=== PATIENT | male | born 1950 | race Caucasian/White ===

== ENCOUNTER 2022-10-19 16:59 | Inpatient (IN) ==
[2022-10-19 18:04] LABS: Appearance Urine Clear (Clear); Bacteria Urine Automated 4+ (Negative); Bilirubin Urine Negative (Negative); Blood Urine Negative (Negative); Color Urine Dark Yellow; Epithelial Cell Urine Auto 0-5 /lpf (0-5); Glucose Urine UA Negative (Negative); Ketones Urine 2+ (Negative); Leukocyte Esterase Urine 2+ (Negative); Nitrite Urine Positive (Negative); Protein Urine 1+ (Negative); RBC Urine Automated 0-4 /hpf (0-4); Specific Gravity Urine 1.016 (1.000-1.030); Urobilinogen Urine Negative (Negative); WBC Urine Automated >30 /hpf (0-5)
[2022-10-19 18:06] LABS: Hematocrit (blood only) 47.1 % (42.0-52.0); Hemoglobin 16.7 g/dl (14.0-18.0); Mean Corpuscular Hemoglobin 31.2 pg (25.0-34.0); Mean Corpuscular Hgb Conc 35.5 g/dL (32.0-36.0); Mean Corpuscular Volume 87.9 fL (80.0-100.0); Mean Platelet Volume 11.1 fL (9.4-12.4); Platelet Count 160 K/uL (130-400); RDW Standard Deviation 44.8 fL (36.4-46.3); Red Blood Count 5.36 M/uL (4.70-6.10); White Blood Count 6.14 K/ul (4.8-10.8)
[2022-10-19] MEDS ORDERED: cefTRIAXone SODIUM 2,000 MG/70 ML BAG IV STA (18:25)
[2022-10-19 18:26] LABS: Albumin Globulin Ratio 2.2 (0.9-2); Albumin Level 4.7 gm/dl (3.4-5.0); BUN Creatinine Ratio 17.3 (10-20); Bilirubin,Total 2.7 mg/dl (0.2-1.0); Creatinine Clr Calc Pharmacy 64.8 ml/min; Est GFR (African American) 76.2 ml/min; Est GFR (Non-African American) 65.8 ml/min; Globulin 2.1 gm/dl (2.5-4.0); Potassium 3.2 mmol/L (3.5-5.1); Total Protein 6.8 gm/dl (6.0-8.3)
[2022-10-19 18:27] LABS: Basophils # (auto) 0.01 K/uL (0.00-0.20); Basophils % (auto) 0.2 %; Immature Granulocytes # (auto) 0.01 K/uL (0.01-0.20); Immature Granulocytes % (auto) 0.2 %; Lymphocytes # (auto) 0.16 K/uL (1.20-3.40); Lymphocytes % (auto) 2.6 %; Monocytes # (auto) 0.03 K/uL (0.11-0.59); Monocytes % (auto) 0.5 %; Neutrophils # (auto) 5.93 K/uL (1.40-6.50); Neutrophils % (auto) 96.5 %
[2022-10-19 18:29] LABS: Troponin I High Sensitivity 11.9 pg/ml (0-20)
--- NOTE | 2022-10-19 18:38 | Emergency Department Note ---
Impression & Plan Sepsis, Abdominal pain, acute, epigastric, Elevated LFTs, Acute UTI (urinary tract infection), Acalculous cholecystitis ED Provider Note INFORMANT: Patient ED PROVIDER(S): Shadi Horowitz MD CHIEF COMPLAINT: Abdominal pain PLAN: Disposition: Admitted Condition: Good Outpatient prescription management: none Referral: None MEDICAL DECISION MAKING: Patient presented because of abdominal pain a work-up was initiated. Her CBC was unremarkable. Patient's LFTs were very concerning as they were elevated in an obstructive pattern. Patient underwent ultrasound imaging and there was concerns about a calculus cholecystitis. Patient's urinalysis was concerning for infection. Patient was given a dose of IV Rocephin. After the ultrasound report was reviewed patient was given a dose of IV Flagyl and blood cultures performed. He did drop his blood pressure slightly. Patient had a lactate added and it was noted to be significantly elevated. Patient was treated with IV fluids given his ideal body weight. Patient did receive 2200 mL of fluid and his hypotension did resolve. Patient was given a small dose of Toradol as he did spike a fever. I did discuss his findings with gastroenterology, Dr. Mir. He recommended MRCP and further evaluation in the hospital. Consultation was made with Dr. Daniel Robledo of the [facility] service. Patient was evaluated in the ER for further management. Discussed with manager front After review of the information above and other included data, I feel the patient requires admission. Triage Nursing notes reviewed and agree them. Vital Signs: reviewed and remarkable for hypotension Prior /Outside records reviewed: none Differential diagnosis: Etiologies such as biliary pathology, gastroenteritis, food borne illness, infections, appendicitis, diverticulitis, inflammatory bowel disease, GI bleed, as well as others were entertained. Diagnostics, as interpreted by me: ECG: Twelve-lead ECG was sinus tachycardia [address]pm[address] minimal anterior [address] depression and nonspecific ST abnormality. No ST elevation. Cardiac Monitoring: Cardiac monitoring ordered by me: The patient was placed on continuous cardiac monitoring and observed. It revealed a normal sinus rhythm at 83 beats per minute without ectopy or evidence of dysrhythmia. Medical decision rules: none Imaging studies: Ultrasound as above. HPI: The patient is a 72year old male who presents to the Emergency Room with complaints of epigastric abdominal pain. This started early this morning and is actually improved. The patient also notes the following associated symptoms, chills and some urinary frequency. The patient has taken Tylenol for relieving factors. Current pain is rated as 0/10. Pt denies LOC, headache, diaphoresis, visual changes, neck pain, chest pain, breathing difficulties, nausea, vomiting, back pain, melena, hematochezia, numbness, weakness, lymphadenopathy, rash, or other complaints. PAST MEDICAL HISTORY: See Below, atrial tachycardia PAST SURGICAL HISTORY: See Below, hip replacements SOCIAL HISTORY: See Below, retired HOME MEDICATIONS: See Below ALLERGIES: See Below VITALS: See Below PHYSICAL EXAMINATION: GENERAL: Awake, alert, well-appearing, in no distress HENT: Normocephalic, atraumatic. Oropharynx unremarkable. EYES: Normal conjunctiva. Sclera non-icteric. NECK: Inspection normal. Non-tender. Supple. No nuchal rigidity. FROM. No masses. RESPIRATORY: Clear to auscultation. No wheezes. No rales. Normal respiratory effort. CARDIAC: Borderline tachycardic rate. Normal rhythm. No murmurs. No rubs. Extremities warm and well perfused. Pulses equal. No JVD. GI: Soft, non-distended. Epigastric tenderness to palpation. No rebound or guarding. No masses. RECTAL: Deferred. MUSCULOSKELETAL: Atraumatic. Chest examination reveals no tenderness. The back is symmetrical on inspection without obvious abnormality. There is no CVA tenderness to palpation. No joint edema. LOWER EXTREMITIES: Calves are equal size bilaterally and non-tender. No edema. No discoloration. NEURO: Normal sensorium. No sensory or motor deficits noted. SKIN: No rash or jaundice noted. CRITICAL CARE: I have personally spent 35 minutes of critical care time in the direct management of this patient. This includes bedside care, interpretation of diagnostic studies, and testing, discussion with consultants, patient, and other required patient management activities. These minutes are in excess of all separately billable procedures. Past Med/Surg History Medical History (Reviewed 09/24/22 @ 10:06 by Kavon Bravo Jr, MD, [facility]) GERD (gastroesophageal reflux disease) History of nephrolithiasis HLD (hyperlipidemia) HTN (hypertension) Osteoarthritis Surgical History (Reviewed 09/24/22 @ 10:06 by Kavon Bravo Jr, MD, [facility]) History of bilateral hip replacements History of cardiac catheterization History of cataract surgery History of colonoscopy History of eye surgery History of lithotripsy History of prostate surgery History of tonsillectomy Family History (Reviewed 09/24/22 @ 10:06 by Kavon Bravo Jr, MD, [facility]) Mother Myocardial infarction Father Stroke Other No family history of adverse response to anesthesia Denies family history of Ovarian cancer Prostate cancer Diabetes Breast cancer Lung cancer Colorectal cancer Social History (Reviewed 09/24/22 @ 10:06 by Kavon Bravo Jr, MD, [facility]) Smoking Status: Never smoker Second Hand Exposure: No; Do You Dip or Chew Tobacco: No; Hx Alcohol Use: No Hx Substance Use: No Preferred Language: Yi Communication Ability: Effective Visual Impairment: Limited Hearing Ability: Normal Map Plotter Required: No Beliefs That Will Affect Care: None marital status: Current Living Situation: Significant Other current occupational status: retired How many Children do You have: 0 Other Information That Helps Us Care for You: No Feels Safe at Home: Yes Safety Concerns: Feels Safe At This Time Childhood Exposure to Second-Hand Smoke: No caffeine: No Dental Care, Regularly: Yes Physical Activity Frequency: Does not Exercise Seatbelt Use: always Sunscreen Use: Yes Assistive Devices: Glasses Allergies Allergies Allergy/AdvReac Type Severity Reaction Status Date / Time No Known Allergies Allergy Verified 10/19/22 18:44 Home Meds Home Medications Medication Instructions Recorded Confirmed alpha lipoic acid 600 mg capsule 600 mg PO QAM 03/01/22 10/19/22 ascorbic acid (vitamin C) 1,000 mg 1 g PO QAM 03/01/22 10/19/22 capsule aspirin 81 mg tablet,delayed 81 mg PO QAM 03/01/22 10/19/22 release (Adult Low Dose Aspirin) cetirizine 10 mg capsule (Zyrtec) 10 mg PO DAILY PRN Allergy Symptoms 03/01/22 10/19/22 cholecalciferol (vitamin D3) 125 125 mcg PO QAM 03/01/22 10/19/22 mcg (5,000 unit) capsule coenzyme Q10 200 mg capsule 200 mg PO QAM 03/01/22 10/19/22 fluticasone propionate 50 2 spray intranasal QPM 03/01/22 10/19/22 mcg/actuation nasal spray,suspension (Flonase Allergy Relief) krill 350 mg-omega-3 90 mg-dha 24 1 cap PO QAM 03/01/22 10/19/22 mg-epa 50 jh-lwdbkax-bxtzp capsule (MegaRed [place]-3 Krill Oil) mecobalamin (vitamin B12) 1,000 1,000 mcg PO QAM 03/01/22 10/19/22 mcg chewable tablet beevhzbh-wz-rlmbg 300 mcg-K 60 1 tab PO QAM 03/01/22 10/19/22 mcg-lycop 600 mcg-lutein 300 mcg tablet (Centrum Silver Men) red yeast rice 600 mg capsule 1,200 mg PO QAM 03/01/22 10/19/22 atorvastatin 80 mg tablet 80 mg PO QAM 06/11/22 10/19/22 esomeprazole magnesium 20 mg 20 mg PO QAM 06/11/22 10/19/22 capsule,delayed release (Nexium) hydrochlorothiazide 25 mg tablet 25 mg PO QAM 06/11/22 10/19/22 metoprolol succinate 50 mg capsule 50 mg PO QAM 06/11/22 10/19/22 sprinkle, ext. release 24 hr olmesartan 40 mg tablet 40 mg PO QAM 06/11/22 10/19/22 potassium gluconate 600 mg (99 mg) 600 mg PO DAILY 09/05/22 10/19/22 tablet vitamins A,C,Z-zkey-bxffpm 2,148 1 tab PO BID 09/05/22 10/19/22 mcg-113 mg-45 mg-17.4 mg tablet (PreserVision AREDS) cranberry extract 500 mg tablet 1,000 mg PO DAILY 10/19/22 10/19/22 herbal drugs 2 cap PO DAILY 10/19/22 10/19/22 Previous Rx's Medication Instructions Recorded nitroglycerin 0.4 mg sublingual 0.4 mg sublingual Q5M PRN chest 08/14/22 tablet pain #12 tabs diltiazem HCl 240 mg 240 mg PO DAILY #90 caps 09/24/22 capsule,extended release 24 hr famotidine 20 mg tablet 20 mg PO DAILY #90 tabs 10/04/22 Results & Data (ED) Vital Signs Vital Signs - 24 hr 10/19/22 17:13 10/19/22 18:01 10/19/22 18:01 Temperature 37.0 C Temperature Source Temporal Artery Scan Pulse Rate 106 H 109 H Pulse Rate [Apical] 109 H Respiratory Rate 20 18 18 Respiratory Effort / Characteristics Non-Labored Non-Labored Spontaneous Respiratory Depth Normal Normal Blood Pressure 126/76 Blood Pressure [Right Arm] 146/72 H Blood Pressure Mean 92 Blood Pressure Mean [Right Arm] 96 Pulse Oximetry 94 93 93 Oxygen Delivery Method Room Air Room Air Room Air Sepsis Recent Fever Within 48 Hours No Sepsis New/Unexplained Change in Mental Status N/A Sepsis Action Taken by Nursing No Action Required 10/19/22 18:04 10/19/22 19:28 10/19/22 20:54 Temperature Temperature Source Pulse Rate 108 H Pulse Rate [Apical] 93 H 80 Respiratory Rate 20 18 Respiratory Effort / Characteristics Respiratory Depth Blood Pressure Blood Pressure [Right Arm] 89/73 L 109/70 Blood Pressure Mean Blood Pressure Mean [Right Arm] 78 83 Pulse Oximetry 91 93 Oxygen Delivery Method Room Air Room Air Sepsis Recent Fever Within 48 Hours Sepsis New/Unexplained Change in Mental Status Sepsis Action Taken by Nursing Laboratory Data 10/19/22 17:39 10/19/22 17:39 Lab Results 10/19/22 10/19/22 10/19/22 Range/Units 17:39 17:39 17:39 WBC 6.14 (4.8-10.8) K/ul RBC 5.36 (4.70-6.10) M/uL Hgb 16.7 (14.0-18.0) g/dl Hct 47.1 (42.0-52.0) % MCV 87.9 (80.0-100.0) fL MCH 31.2 (25.0-34.0) pg MCHC 35.5 (32.0-36.0) g/dL RDW Std Deviation 44.8 (36.4-46.3) fL RDW Coeff of Thomas 14.0 (11.5-14.5) % Plt Count 160 (130-400) K/uL MPV 11.1 (9.4-12.4) fL Immature Gran % (Auto) 0.2 % Neut % (Auto) 96.5 % Lymph % (Auto) 2.6 % [place] % (Auto) 0.5 % Eos % (Auto) 0.0 % Baso % (Auto) 0.2 % Neut # (Auto) 5.93 (1.40-6.50) K/uL Lymph # (Auto) 0.16 L (1.20-3.40) K/uL [place] # (Auto) 0.03 L (0.11-0.59) K/uL Eos # (Auto) 0.00 (0.00-0.50) K/uL Baso # (Auto) 0.01 (0.00-0.20) K/uL Immature Gran # (Auto) 0.01 (0.01-0.20) K/uL Sodium 140 (136-145) mmol/L Potassium 3.2 L (3.5-5.1) mmol/L Chloride 99 (98-107) mmol/L Carbon Dioxide 28 (21-32) mmol/L Anion Gap 13 H (3-11) BUN 19 (6-23) mg/dl Creatinine 1.10 (0.6-1.4) mg/dl Est Cr Clr Drug Dosing 64.8 ml/min Est GFR ( Amer) 76.2 ml/min Est GFR (Non-Af Amer) 65.8 ml/min BUN/Creatinine Ratio 17.3 (10-20) Glucose 108 H (70-99(Fasting)) mg/dl Lactate (0.4-2.0) mmol/L Calcium 10.0 (8.6-10.3) mg/dl Total Bilirubin 2.7 H (0.2-1.0) mg/dl AST 271 H (13-39) U/L ALT 204 H (7-52) U/L Alkaline Phosphatase 213 H (34-104) U/L Troponin I High Sens 11.9 (0-20) pg/ml Total Protein 6.8 (6.0-8.3) gm/dl Albumin 4.7 (3.4-5.0) gm/dl Globulin 2.1 L (2.5-4.0) gm/dl Albumin/Globulin Ratio 2.2 H (0.9-2) Lipase 22 (11-82) U/L Urine Color Dark Yellow Urine Appearance Clear (Clear) Urine pH 5.0 (4.5-7.5) Ur Specific [place] 1.016 (1.000-1.030) Urine Protein 1+ H (Negative) Urine Glucose (UA) Negative (Negative) Urine Ketones 2+ H (Negative) Urine Blood Negative (Negative) Urine Nitrite Positive A (Negative) Urine Bilirubin Negative (Negative) Urine Urobilinogen Negative (Negative) Ur Leukocyte Esterase 2+ H (Negative) Urine WBC (Auto) >30 H (0-5) /hpf Urine RBC (Auto) 0-4 (0-4) /hpf U Hyaline Cast (Auto) 1-5 (0-5) /lpf U Epithel Cells (Auto) 0-5 (0-5) /lpf Urine Bacteria (Auto) 4+ H (Negative) 10/19/22 Range/Units 20:19 WBC (4.8-10.8) K/ul RBC (4.70-6.10) M/uL Hgb (14.0-18.0) g/dl Hct (42.0-52.0) % MCV (80.0-100.0) fL MCH (25.0-34.0) pg MCHC (32.0-36.0) g/dL RDW Std Deviation (36.4-46.3) fL RDW Coeff of Thomas (11.5-14.5) % Plt Count (130-400) K/uL MPV (9.4-12.4) fL Immature Gran % (Auto) % Neut % (Auto) % Lymph % (Auto) % [place] % (Auto) % Eos % (Auto) % Baso % (Auto) % Neut # (Auto) (1.40-6.50) K/uL Lymph # (Auto) (1.20-3.40) K/uL [place] # (Auto) (0.11-0.59) K/uL Eos # (Auto) (0.00-0.50) K/uL Baso # (Auto) (0.00-0.20) K/uL Immature Gran # (Auto) (0.01-0.20) K/uL Sodium (136-145) mmol/L Potassium (3.5-5.1) mmol/L Chloride (98-107) mmol/L Carbon Dioxide (21-32) mmol/L Anion Gap (3-11) BUN (6-23) mg/dl Creatinine (0.6-1.4) mg/dl Est Cr Clr Drug Dosing ml/min Est GFR ( Amer) ml/min Est GFR (Non-Af Amer) ml/min BUN/Creatinine Ratio (10-20) Glucose (70-99(Fasting)) mg/dl Lactate 3.8 H* (0.4-2.0) mmol/L Calcium (8.6-10.3) mg/dl Total Bilirubin (0.2-1.0) mg/dl AST (13-39) U/L ALT (7-52) U/L Alkaline Phosphatase (34-104) U/L Troponin I High Sens (0-20) pg/ml Total Protein (6.0-8.3) gm/dl Albumin (3.4-5.0) gm/dl Globulin (2.5-4.0) gm/dl Albumin/Globulin Ratio (0.9-2) Lipase (11-82) U/L Urine Color Urine Appearance (Clear) Urine pH (4.5-7.5) Ur Specific [place] (1.000-1.030) Urine Protein (Negative) Urine Glucose (UA) (Negative) Urine Ketones (Negative) Urine Blood (Negative) Urine Nitrite (Negative) Urine Bilirubin (Negative) Urine Urobilinogen (Negative) Ur Leukocyte Esterase (Negative) Urine WBC (Auto) (0-5) /hpf Urine RBC (Auto) (0-4) /hpf U Hyaline Cast (Auto) (0-5) /lpf U Epithel Cells (Auto) (0-5) /lpf Urine Bacteria (Auto) (Negative) Administered Medications Discontinued Medications Ceftriaxone Sodium (Rocephin) 2,000 mg in 70 mls @ 140 mls/hr IV NOW STA Stop: 10/19/22 18:54 Last Infusion: 10/19/22 19:56 Dose: 0 mls/hr Documented By: Admin: 10/19/22 19:26 Dose: 140 mls/hr Documented By: JAROCHO Sodium Chloride (Nss 1000ml) 2,000 mls @ 999 mls/hr IV .Q2H1M ONE Stop: 10/19/22 21:50 Last Infusion: 10/19/22 22:58 Dose: 0 mls/hr Documented By: Admin: 10/19/22 20:12 Dose: 999 mls/hr Documented By: JAROCHO Metronidazole (Flagyl) 500 mg in 100 mls @ 100 mls/hr IV NOW STA; Protocol Stop: 10/19/22 20:49 Last Infusion: 10/19/22 21:40 Dose: 0 mls/hr Documented By: Admin: 10/19/22 20:36 Dose: 100 mls/hr Documented By: JAROCHO Potassium Chloride (K Joshua / Wtr) 10 meq in 100 mls @ 100 mls/hr IV ONE ONE; Protocol Stop: 10/19/22 21:39 Last Infusion: 10/19/22 22:58 Dose: 0 mls/hr Documented By: Admin: 10/19/22 20:52 Dose: 100 mls/hr Documented By: JAROCHO Ketorolac Tromethamine (Ketorolac Tromethamine 15 Mg/Ml Vial) 10 mg IV NOW ONE Stop: 10/19/22 19:55 Last Admin: 10/19/22 20:11 Dose: 10 mg Documented By: JAROCHO Imaging Data Radiologist's Impression: Gallbladder Ultrasound 10/19/22 17:54 ULTRASOUND RIGHT UPPER QUADRANT ABDOMEN CLINICAL HISTORY: Epigastric abdominal pain. Chills. Anorexia. COMPARISON STUDY: No priors. TECHNIQUE: Real-time, grayscale, and color flow sonography of the right upper quadrant of the abdomen was performed. Images are reviewed in the transverse and longitudinal planes. FINDINGS: Liver: The liver is normal in size and echotexture. There is no intrahepatic biliary ductal dilatation. The main portal vein is patent. Gallbladder: The gallbladder is distended and the wall is thickened, measuring up to 3 mm in diameter. No shadowing gallstones are identified. No pericholecystic fluid is seen and a sonographic Verduzco's sign is reportedly absent. The common bile duct measures up to 0.6 cm in diameter. Pancreas: Visualized portions of the pancreatic head and body are normal in appearance. Right kidney: Survey images of the right kidney demonstrate normal size and echotexture. There is no hydronephrosis. Ascites: None. IMPRESSION: 1. The gallbladder is distended and appears thick-walled. No shadowing gallstones are identified and a sonographic Verduzco's sign is reportedly absent. Findings are equivocal for acute cholecystitis, which is not entirely excluded. Clinical and laboratory correlation will be required. If there is strong clinical concern for acute/acalculus cholecystitis a nuclear hepatobiliary scan should be considered. 2. There is no significant intra or extrahepatic biliary ductal dilatation. ACT 112: Negative or not required by law. Electronically signed by: Shravan Brown M.D. 10/19/2022 7:39 PM Cholangiopancreatography MRI 10/19/22 20:52 Exam(s): MRI MRCP EXAM: MR Abdomen Without Intravenous Contrast, MRCP Protocol CLINICAL HISTORY: abnormal LFT's. TECHNIQUE: Multiplanar magnetic resonance images of the abdomen without intravenous contrast using MRCP protocol. COMPARISON: Right upper quadrant ultrasound performed at 1856 hrs. FINDINGS: Bile ducts: Unremarkable. No stones. No ductal dilation. Gallbladder: The gallbladder is distended. No cholelithiasis. The gallbladder wall thickening noted sonographically is not clearly delineated, although evaluation is slightly limited by mild respiratory artifact. No obvious pericholecystic fluid. Liver: Low attenuation foci in the liver which may be due to cysts but are too small to characterize. Pancreas: Unremarkable. No ductal dilation. Spleen: Unremarkable. No splenomegaly. Adrenals: Unremarkable. No mass. Kidneys and ureters: Unremarkable. No hydronephrosis. Stomach and bowel: Limited. No obstruction. Other findings: Asymmetric elevation of the right hemidiaphragm. IMPRESSION: 1. The gallbladder is distended. No cholelithiasis. The gallbladder wall thickening noted sonographically is not clearly delineated, although evaluation is slightly limited by mild respiratory artifact. No obvious pericholecystic fluid. 2. No biliary dilatation. No choledocholithiasis. Electronically signed by: Ravi Enamorado MD 10/19/22 23:30 PM Discharge Plan Visit Data Chief Complaint: Abdominal Pain Stated Complaint: ABD PAIN, SHAKY ED Provider: Shadi Horowitz Discharge Problem: Sepsis, Abdominal pain, acute, epigastric, Elevated LFTs, Acute UTI (urinary tract infection), Acalculous cholecystitis Patient Disposition: Admitted As Inpatient Discharge Instructions Interventions: ED Discharge Assessment Last Done: 10/19/22 22:24
--- NOTE | 2022-10-19 19:41 | Ultrasound Report ---
ULTRASOUND RIGHT UPPER QUADRANT ABDOMEN CLINICAL HISTORY: Epigastric abdominal pain. Chills. Anorexia. COMPARISON STUDY: No priors. TECHNIQUE: Real-time, grayscale, and color flow sonography of the right upper quadrant of the abdomen was performed. Images are reviewed in the transverse and longitudinal planes. FINDINGS: Liver: The liver is normal in size and echotexture. There is no intrahepatic biliary ductal dilatatio n. The main portal vein is patent. Gallbladder: The gallbladder is distended and the wall is thickened, measuring up to 3 mm in diameter . No shadowing gallstones are identified. No pericholecystic fluid is seen and a sonographic Verduzco's sign is reportedly absent. The common bile duct measures up to 0.6 cm in diameter. Pancreas: Visualized portions of the pancreatic head and body are normal in appearance. Right kidney: Survey images of the right kidney demonstrate normal size and echotexture. There is no hydronephrosis. Ascites: None. IMPRESSION: 1. The gallbladder is distended and appears thick-walled. No shadowing gallstones are identified and a sonographic Verduzco's sign is reportedly absent. Findings are equivocal for acute cholecystitis, whi ch is not entirely excluded. Clinical and laboratory correlation will be required. If there is strong clinical concern for acute/acalculus cholecystitis a nuclear hepatobiliary scan should be considered . 2. There is no significant intra or extrahepatic biliary ductal dilatation. ACT 112: Negative or not required by law. Electronically signed by: Shravan Brown M.D. 10/19/2022 7:39 PM
[2022-10-19] MEDS ORDERED: SODIUM CHLORIDE 0.9% 2,000 ML IV ONE (19:50)
[2022-10-19] MEDS ORDERED: metroNIDAZOLE 500 MG/100 ML BAG IV STA (19:50)
[2022-10-19] MEDS ORDERED: KETOROLAC TROMETHAMINE 15 MG/ML VIAL IV ONE (19:54)
[2022-10-19] MEDS ORDERED: POTASSIUM CHLORIDE / WTR 10 MEQ/100 ML PLCT IV ONE (20:40)
--- NOTE | 2022-10-19 21:00 | History & Physical Report ---
Date of Service October 19, 2022 Assessment & Plan (1) Abdominal pain, acute, epigastric: (2) Elevated LFTs: (3) Abnormal gallbladder ultrasound: (4) Acute UTI (urinary tract infection): (5) Nonsustained paroxysmal supraventricular tachycardia: (6) BPH loc w urin obs/LUTS: (7) CAD (coronary artery disease): (8) GERD (gastroesophageal reflux disease): Plan Abnormal gallbladder ultrasound/epigastric pain/abnormal LFTs- NPO except meds Order MRCP Given ceftriaxone and Flagyl IV in ED Zosyn 4.5 g IV hours Dilaudid 0.25 mg IV 6 hours as needed for mod-severe pain Pantoprazole 40 mg IV daily NSS + KCl 20 mEq at 100 mils per hour Consult gastroenterology UTI/BPH with LUTS- Follow urine culture and sensitivity Zosyn 4.5g IV qhrs Hypotension/history of hypertension- Blood pressure dropped as low as 89/73 in the ED admit to telemetry Hold All oral anti-hypertensives until blood pressure improves Continue IV fluids History of Present Illness Chief Complaint: The patient presents to the emergency department with complaint of epigastric abdominal pain that began first thing this morning upon awakening, improved slightly, and then worsened at 2:30 PM this afternoon accompanied by nausea, which prompted him to come to the ED for assessment Primary Care Provider: CONRADO Mulligan The patient is a 72-year-old male with past medical history including nonsustained V. tach, paroxysmal atrial tachycardia, hypertension, BPH with LUTS, CAD, hyperlipidemia, GERD, prediabetes and urolithiasis. He presents the ED with a cute onset of epigastric pain which progressed to nausea and worsening pain up until 230 this afternoon, when he presents to the ED for assessment. He has not had any different food intake than usual, and no symptoms prior to today. He denies any recent travels or sick exposures. Significant laboratory abnormalities: Hemoglobin 16.7, hematocrit 47.1, potassium 3.2, glucose 108, total bilirubin 2.7, AST 271, ALT 204, ALP 213. Urinalysis is abnormal suggesting infection Ultrasound gallbladder: Gallbladder is distended and appears thick-walled. No shadowing gallstones identified and a sonographic Verduzco sign is reportedly absent. Findings are equivocal for acute cholecystitis, which is not entirely excluded. Clinical and laboratory correlation will be required. If there is a strong clinical discern for acute/a calculus cholecystitis a nuclear hepatobiliary scan should be considered GI consult by ED, asked that MRCP be performed. Allergies Allergy/AdvReac Type Severity Reaction Status Date / Time No Known Allergies Allergy Verified 10/19/22 18:44 Home Medications Medication Instructions Recorded Confirmed Type alpha lipoic acid 600 mg capsule 600 mg PO QAM 03/01/22 10/19/22 History ascorbic acid (vitamin C) 1,000 mg 1 g PO QAM 03/01/22 10/19/22 History capsule aspirin 81 mg tablet,delayed 81 mg PO QAM 03/01/22 10/19/22 History release (Adult Low Dose Aspirin) cetirizine 10 mg capsule (Zyrtec) 10 mg PO DAILY PRN Allergy Symptoms 03/01/22 10/19/22 History cholecalciferol (vitamin D3) 125 125 mcg PO QAM 03/01/22 10/19/22 History mcg (5,000 unit) capsule coenzyme Q10 200 mg capsule 200 mg PO QAM 03/01/22 10/19/22 History fluticasone propionate 50 2 spray intranasal QPM 03/01/22 10/19/22 History mcg/actuation nasal spray,suspension (Flonase Allergy Relief) krill 350 mg-omega-3 90 mg-dha 24 1 cap PO QAM 03/01/22 10/19/22 History mg-epa 50 mc-hhkihnp-jefzd capsule (MegaRed Lovejoy-3 Krill Oil) mecobalamin (vitamin B12) 1,000 1,000 mcg PO QAM 03/01/22 10/19/22 History mcg chewable tablet epwwxtfw-ks-rmxqd 300 mcg-K 60 1 tab PO QAM 03/01/22 10/19/22 History mcg-lycop 600 mcg-lutein 300 mcg tablet (Centrum Silver Men) red yeast rice 600 mg capsule 1,200 mg PO QAM 03/01/22 10/19/22 History atorvastatin 80 mg tablet 80 mg PO QAM 06/11/22 10/19/22 History esomeprazole magnesium 20 mg 20 mg PO QAM 06/11/22 10/19/22 History capsule,delayed release (Nexium) hydrochlorothiazide 25 mg tablet 25 mg PO QAM 06/11/22 10/19/22 History metoprolol succinate 50 mg capsule 50 mg PO QAM 06/11/22 10/19/22 History sprinkle, ext. release 24 hr olmesartan 40 mg tablet 40 mg PO QAM 06/11/22 10/19/22 History nitroglycerin 0.4 mg sublingual 0.4 mg sublingual Q5M PRN chest 08/14/22 10/19/22 Rx tablet pain #12 tabs potassium gluconate 600 mg (99 mg) 600 mg PO DAILY 09/05/22 10/19/22 History tablet vitamins A,C,I-rqff-yhaaxf 2,148 1 tab PO BID 09/05/22 10/19/22 History mcg-113 mg-45 mg-17.4 mg tablet (PreserVision AREDS) diltiazem HCl 240 mg 240 mg PO DAILY #90 caps 09/24/22 10/19/22 Rx capsule,extended release 24 hr famotidine 20 mg tablet 20 mg PO DAILY #90 tabs 10/04/22 10/19/22 Rx cranberry extract 500 mg tablet 1,000 mg PO DAILY 10/19/22 10/19/22 History herbal drugs 2 cap PO DAILY 10/19/22 10/19/22 History Past Med/Surg History Medical History GERD (gastroesophageal reflux disease) History of nephrolithiasis HLD (hyperlipidemia) HTN (hypertension) Osteoarthritis Surgical History History of bilateral hip replacements History of cardiac catheterization History of cataract surgery History of colonoscopy History of eye surgery History of lithotripsy History of prostate surgery History of tonsillectomy Family History (Reviewed 09/24/22 @ 10:06 by Kavon Bravo Jr, MD, [facility]) Mother Myocardial infarction Father Stroke Other No family history of adverse response to anesthesia Denies family history of Ovarian cancer Prostate cancer Diabetes Breast cancer Lung cancer Colorectal cancer Social History Smoking Status: Never smoker Second Hand Exposure: No; Do You Dip or Chew Tobacco: No; Hx Alcohol Use: No Hx Substance Use: No Preferred Language: Mongolian Communication Ability: Effective Visual Impairment: Limited Hearing Ability: Normal Cafe Site Attendant Required: No Beliefs That Will Affect Care: None marital status: Current Living Situation: Significant Other current occupational status: retired How many Children do You have: 0 Feels Safe at Home: Yes Childhood Exposure to Second-Hand Smoke: No caffeine: No Dental Care, Regularly: Yes Physical Activity Frequency: Does not Exercise Seatbelt Use: always Sunscreen Use: Yes Assistive Devices: Glasses Review of Systems Review of Systems: The patient denies chest pain, palpitations, shortness of breath, dyspnea on exertion, cough, lower extremity swelling, sore throat, fevers, chills, sweats, vomiting, diarrhea , constipation, pelvic pain, blood in urine or stool, dysuria, urinary frequency or urgency, lightheadedness, dizziness, headache, memory loss, loss of consciousness, rash, abnormal bruising or bleeding, imbalance, focal or generalized weakness, numbness or tingling in arms or legs, generalized arthralgias or myalgias, back or neck pain, or night sweats. The review of systems is otherwise negative other than for that already noted above, and at least 10 systems have been reviewed. Physical Exam Physical Exam: The patient is awake, alert and oriented 3, well developed and well nourished, normocephalic and atraumatic, sitting upright iin bed and in no acute distress. HEENT--PERRL, EOMI, mucous membranes and oropharynx dry. Neck--supple. No JVD. No bruits. Thyroid normal, trachea midline, no adenopathy. Heart--normal S1 and S2. No murmurs, rubs or gallops. Lungs--clear bilaterally, no respiratory distress, no accessory muscle use. Abdomen--normal bowel sounds and soft. Nontender. Nondistended, no hernias or masses, no organomegaly. Extremities--no cyanosis or clubbing. No edema. Dermatologic--normal skin turgor, normal color, no abnormal lymph nodes, no rash. Neurologic--cranial nerves II through XII grossly intact. Rheumatologic--normal range of motion. Psychiatric--normal affect. Results & Data Results & Data Vital Signs (Past 12 Hours) Vital Signs Temp Pulse Pulse Resp BP BP Pulse Ox 10/19/22 20:54 80 18 109/70 93 10/19/22 19:28 93 H 20 89/73 L 91 10/19/22 18:04 108 H 10/19/22 18:01 109 H 18 93 10/19/22 18:01 109 H 18 146/72 H 93 10/19/22 17:13 37.0 C 106 H 20 126/76 94 O2 Del Method 10/19/22 20:54 Room Air 10/19/22 19:28 Room Air 10/19/22 18:04 10/19/22 18:01 Room Air 10/19/22 18:01 Room Air 10/19/22 17:13 Room Air Laboratory Results Laboratory Results WBC 6.14 K/ul (4.8-10.8) 10/19/22 17:39 RBC 5.36 M/uL (4.70-6.10) 10/19/22 17:39 Hgb 16.7 g/dl (14.0-18.0) 10/19/22 17:39 Hct 47.1 % (42.0-52.0) 10/19/22 17:39 MCV 87.9 fL (80.0-100.0) 10/19/22 17:39 MCH 31.2 pg (25.0-34.0) 10/19/22 17:39 MCHC 35.5 g/dL (32.0-36.0) 10/19/22 17:39 RDW Std Deviation 44.8 fL (36.4-46.3) 10/19/22 17:39 RDW Coeff of Thomas 14.0 % (11.5-14.5) 10/19/22 17:39 Plt Count 160 K/uL (130-400) 10/19/22 17:39 MPV 11.1 fL (9.4-12.4) 10/19/22 17:39 Immature Gran % (Auto) 0.2 % 10/19/22 17:39 Neut % (Auto) 96.5 % 10/19/22 17:39 Lymph % (Auto) 2.6 % 10/19/22 17:39 [place] % (Auto) 0.5 % 10/19/22 17:39 Eos % (Auto) 0.0 % 10/19/22 17:39 Baso % (Auto) 0.2 % 10/19/22 17:39 Neut # (Auto) 5.93 K/uL (1.40-6.50) 10/19/22 17:39 Lymph # (Auto) 0.16 K/uL (1.20-3.40) L 10/19/22 17:39 [place] # (Auto) 0.03 K/uL (0.11-0.59) L 10/19/22 17:39 Eos # (Auto) 0.00 K/uL (0.00-0.50) 10/19/22 17:39 Baso # (Auto) 0.01 K/uL (0.00-0.20) 10/19/22 17:39 Immature Gran # (Auto) 0.01 K/uL (0.01-0.20) 10/19/22 17:39 Sodium 140 mmol/L (136-145) 10/19/22 17:39 Potassium 3.2 mmol/L (3.5-5.1) L 10/19/22 17:39 Chloride 99 mmol/L (98-107) 10/19/22 17:39 Carbon Dioxide 28 mmol/L (21-32) 10/19/22 17:39 Anion Gap 13 (3-11) H 10/19/22 17:39 BUN 19 mg/dl (6-23) 10/19/22 17:39 Creatinine 1.10 mg/dl (0.6-1.4) 10/19/22 17:39 Est Cr Clr Drug Dosing 64.8 ml/min 10/19/22 17:39 Est GFR ( Amer) 76.2 ml/min 10/19/22 17:39 Est GFR (Non-Af Amer) 65.8 ml/min 10/19/22 17:39 BUN/Creatinine Ratio 17.3 (10-20) 10/19/22 17:39 Glucose 108 mg/dl (70-99(Fasting)) H 10/19/22 17:39 Lactate 2.4 mmol/L (0.4-2.0) H* 10/19/22 22:34 Calcium 10.0 mg/dl (8.6-10.3) 10/19/22 17:39 Total Bilirubin 2.7 mg/dl (0.2-1.0) H 10/19/22 17:39 AST 271 U/L (13-39) H 10/19/22 17:39 ALT 204 U/L (7-52) H 10/19/22 17:39 Alkaline Phosphatase 213 U/L (34-104) H 10/19/22 17:39 Troponin I High Sens 11.9 pg/ml (0-20) 10/19/22 17:39 Total Protein 6.8 gm/dl (6.0-8.3) 10/19/22 17:39 Albumin 4.7 gm/dl (3.4-5.0) 10/19/22 17:39 Globulin 2.1 gm/dl (2.5-4.0) L 10/19/22 17:39 Albumin/Globulin Ratio 2.2 (0.9-2) H 10/19/22 17:39 Lipase 22 U/L (11-82) 10/19/22 17:39 Urine Color Dark Yellow 10/19/22 17:39 Urine Appearance Clear (Clear) 10/19/22 17:39 Urine pH 5.0 (4.5-7.5) 10/19/22 17:39 Ur Specific [place] 1.016 (1.000-1.030) 10/19/22 17:39 Urine Protein 1+ (Negative) H 10/19/22 17:39 Urine Glucose (UA) Negative (Negative) 10/19/22 17:39 Urine Ketones 2+ (Negative) H 10/19/22 17:39 Urine Blood Negative (Negative) 10/19/22 17:39 Urine Nitrite Positive (Negative) A 10/19/22 17:39 Urine Bilirubin Negative (Negative) 10/19/22 17:39 Urine Urobilinogen Negative (Negative) 10/19/22 17:39 Ur Leukocyte Esterase 2+ (Negative) H 10/19/22 17:39 Urine WBC (Auto) >30 /hpf (0-5) H 10/19/22 17:39 Urine RBC (Auto) 0-4 /hpf (0-4) 10/19/22 17:39 U Hyaline Cast (Auto) 1-5 /lpf (0-5) 10/19/22 17:39 U Epithel Cells (Auto) 0-5 /lpf (0-5) 10/19/22 17:39 Urine Bacteria (Auto) 4+ (Negative) H 10/19/22 17:39 Impressions Gallbladder Ultrasound 09/01/23 17:54 ULTRASOUND RIGHT UPPER QUADRANT ABDOMEN CLINICAL HISTORY: Epigastric abdominal pain. Chills. Anorexia. COMPARISON STUDY: No priors. TECHNIQUE: Real-time, grayscale, and color flow sonography of the right upper quadrant of the abdomen was performed. Images are reviewed in the transverse and longitudinal planes. FINDINGS: Liver: The liver is normal in size and echotexture. There is no intrahepatic biliary ductal dilatation. The main portal vein is patent. Gallbladder: The gallbladder is distended and the wall is thickened, measuring up to 3 mm in diameter. No shadowing gallstones are identified. No pericholecystic fluid is seen and a sonographic Verduzco's sign is reportedly absent. The common bile duct measures up to 0.6 cm in diameter. Pancreas: Visualized portions of the pancreatic head and body are normal in appearance. Right kidney: Survey images of the right kidney demonstrate normal size and echotexture. There is no hydronephrosis. Ascites: None. IMPRESSION: 1. The gallbladder is distended and appears thick-walled. No shadowing gallstones are identified and a sonographic Verduzco's sign is reportedly absent. Findings are equivocal for acute cholecystitis, which is not entirely excluded. Clinical and laboratory correlation will be required. If there is strong clinical concern for acute/acalculus cholecystitis a nuclear hepatobiliary scan should be considered. 2. There is no significant intra or extrahepatic biliary ductal dilatation. ACT 112: Negative or not required by law. Electronically signed by: Shravan Brown M.D. 10/19/2022 7:39 PM Code Status & VTE Plan Code Status Full code VTE Prophylaxis Plan VTE Prophylaxis will be ordered: Yes PG Care Time/CCT Total # of Minutes Spent Total Time Spent with Patient: Total time spent is greater than 50% in coordination of care (as documented) at patient's floor/unit and/or counseling patient: Coding Level of Care Code 91124 INT INP/OBS CARE 3/75MIN Diagnoses Abdominal pain, acute, epigastric R10.13 Elevated LFTs R79.89 Abnormal gallbladder ultrasound R93.2 Acute UTI (urinary tract infection) N39.0 Nonsustained paroxysmal supraventricular tachycardia I47.1 BPH loc w urin obs/LUTS N40.1 CAD (coronary artery disease) I25.10 GERD (gastroesophageal reflux disease) K21.9
[2022-10-19] MEDS ORDERED: ONDANSETRON INJ 2 MG/ML 2 ML VIAL IV PRN (22:51)
[2022-10-19] MEDS ORDERED: HYDROmorphone INJ 0.5 MG/0.5 ML SYR IV PRN (22:51)
--- NOTE | 2022-10-19 23:32 | Magnetic Resonance Report ---
Exam(s): MRI MRCP EXAM: MR Abdomen Without Intravenous Contrast, MRCP Protocol CLINICAL HISTORY: abnormal LFT's. TECHNIQUE: Multiplanar magnetic resonance images of the abdomen without intravenous contrast using MRCP protocol. COMPARISON: Right upper quadrant ultrasound performed at 1856 hrs. FINDINGS: Bile ducts: Unremarkable. No stones. No ductal dilation. Gallbladder: The gallbladder is distended. No cholelithiasis. The gallbladder wall thickening noted sonographically is not clearly delineated, although evaluation is slightly limited by mild respiratory artifact. No obvious pericholecystic fluid. Liver: Low attenuation foci in the liver which may be due to cysts but are too small to characterize. Pancreas: Unremarkable. No ductal dilation. Spleen: Unremarkable. No splenomegaly. Adrenals: Unremarkable. No mass. Kidneys and ureters: Unremarkable. No hydronephrosis. Stomach and bowel: Limited. No obstruction. Other findings: Asymmetric elevation of the right hemidiaphragm. IMPRESSION: 1. The gallbladder is distended. No cholelithiasis. The gallbladder wall thickening noted sonographically is not clearly delineated, although evaluation is slightly limited by mild respiratory artifact. No obvious pericholecystic fluid. 2. No biliary dilatation. No choledocholithiasis. Electronically signed by: Ravi Enamorado MD 10/19/22 23:30 PM
[2022-10-19] MEDS: NSS + 20MEQ KCL 20 MEQ/1,000 ML BAG IV SCH (23:53)
[2022-10-19] MEDS: PIPERACILLIN/TAZOBACTAM 4.5 GM in DEXTROSE 5% 100 ML IV SCH (23:53)
[2022-10-20] MEDS ORDERED: KETOROLAC TROMETHAMINE 15 MG/ML VIAL IV PRN (00:06)
[2022-10-20 06:58] LABS: Hemoglobin 13.8 g/dl (14.0-18.0); Mean Corpuscular Hemoglobin 30.9 pg (25.0-34.0); Mean Corpuscular Hgb Conc 34.5 g/dL (32.0-36.0); Mean Corpuscular Volume 89.7 fL (80.0-100.0); Mean Platelet Volume 11.9 fL (9.4-12.4); Platelet Count 139 K/uL (130-400); RDW Coefficient of Variation 14.4 % (11.5-14.5); RDW Standard Deviation 46.8 fL (36.4-46.3); Red Blood Count 4.46 M/uL (4.70-6.10); White Blood Count 15.73 K/ul (4.8-10.8)
[2022-10-20 07:02] LABS: Basophils # (auto) 0.05 K/uL (0.00-0.20); Basophils % (auto) 0.3 %; Eosinophils # (auto) 0.03 K/uL (0.00-0.50); Eosinophils % (auto) 0.2 %; Immature Granulocytes # (auto) 0.08 K/uL (0.01-0.20); Immature Granulocytes % (auto) 0.5 %; Lymphocytes # (auto) 0.46 K/uL (1.20-3.40); Lymphocytes % (auto) 2.9 %; Monocytes # (auto) 1.07 K/uL (0.11-0.59); Monocytes % (auto) 6.8 %; Neutrophils # (auto) 14.04 K/uL (1.40-6.50); Neutrophils % (auto) 89.3 %; RBC Morphology Unremarkable
[2022-10-20 07:03] LABS: Albumin Globulin Ratio 1.8 (0.9-2); Albumin Level 3.6 gm/dl (3.4-5.0); BUN Creatinine Ratio 16.5 (10-20); Bilirubin,Total 3.2 mg/dl (0.2-1.0); Calcium 8.4 mg/dl (8.6-10.3); Creatinine Clr Calc Pharmacy 53.8 ml/min; Est GFR (African American) 60.6 ml/min; Est GFR (Non-African American) 52.3 ml/min; Magnesium 1.7 mg/dl (1.7-2.4); Potassium 3.8 mmol/L (3.5-5.1); Total Protein 5.6 gm/dl (6.0-8.3)
--- NOTE | 2022-10-20 08:33 | Hospitalist Progress Note ---
Date of Service October 20, 2022 Assessment & Plan (1) Abdominal pain, acute, epigastric: Plan: Abnormal gallbladder ultrasound/epigastric pain/abnormal LFTs-concern for acalculaous cholecystitis She admitted surgery allowed to eat a clear liquid low-fat diet MRCP equivocal consideration for possible HIDA scan but will not be able to procure that until October 23 which is 3 days from now Given ceftriaxone and Flagyl IV in ED in patient on Zosyn 4.5 g IV hours Parenteral pain control, ivf Consult gastroenterology, general surgery both are watchful waiting hoping that medical management will stabilize any infectious issue until HIDA scan can be obtained Pt had low blood pressure in er, leukocytosis and elevated lactic acid, concern for sepsis on presentation (2) Acute UTI (urinary tract infection): Plan: Pt has abnormal ua on presentation culture gram-negative bacilli greater than 100,000 pending sensitivities on Zosyn (3) Nonsustained paroxysmal supraventricular tachycardia: Plan: typically on diltiazem/metoprolol which is held due to low blood pressure with hypotension also holding olmesartan and hydrochlorothiazide (4) BPH loc w urin obs/LUTS: (5) CAD (coronary artery disease): (6) GERD (gastroesophageal reflux disease): Admission and Anticipated Discharge Date Admission Date: October 19, 2022 Subjective Patient seen in the company of his family he is feeling better he really had epigastric abdominal pain but no real right upper quadrant abdominal pain Physical Exam Physical Exam: Physical exam he is anicteric Her exam is regular lungs are clear Abdomen is with NABS does not have any right upper quadrant tenderness guarding or other areas of tenderness at this point time Results & Data Results & Data Vital Signs (Past 12 Hours) Vital Signs Temp Pulse Pulse Resp BP Pulse Ox O2 Del Method 10/20/22 07:00 72 10/20/22 03:30 98.4 F 78 17 103/64 95 Room Air 10/19/22 22:51 10/20/22 00:29 80 10/19/22 22:51 98.1 F 83 18 114/69 95 Room Air 10/19/22 20:54 80 18 109/70 93 Room Air O2 Del Method 10/20/22 07:00 10/20/22 03:30 10/19/22 22:51 Room Air 10/20/22 00:29 10/19/22 22:51 10/19/22 20:54 Laboratory Results Reviewed CBC reviewed chemistry PG Care Time/CCT Total # of Minutes Spent Total Time Spent with Patient: Total time spent is greater than 50% in coordination of care (as documented) at patient's floor/unit and/or counseling patient: Coding Level of Care Code 55423 SUB INP/OBS CARE 3/50MIN Diagnoses Abdominal pain, acute, epigastric R10.13 Acute UTI (urinary tract infection) N39.0 Nonsustained paroxysmal supraventricular tachycardia I47.1 BPH loc w urin obs/LUTS N40.1 CAD (coronary artery disease) I25.10 GERD (gastroesophageal reflux disease) K21.9
[2022-10-20] MEDS: PIPERACILLIN/TAZOBACTAM 4.5 GM in DEXTROSE 5% 100 ML IV SCH ×3 (09:16→23:49)
[2022-10-20] MEDS: NSS + 20MEQ KCL 20 MEQ/1,000 ML BAG IV SCH ×2 (09:20→21:29)
[2022-10-20] MEDS: PANTOprazole 40 MG in SYRINGE 0 ML IV SCH (11:38)
--- NOTE | 2022-10-20 12:43 | Surgery Consultation ---
Date of Consultation October 20, 2022 Assessment & Plan (1) Elevated LFTs: (2) Abdominal pain, acute, epigastric: 72 y/o male admitted yesterday with persistent transaminitis and hyperbilirubinemia after an episode of epigastric abdominal pain which is now resolved. Leukocytosis developed this am with a WBC to over 15,000. He has been afebrile since admission. Had some tachycardia yesterday evening that also has been resolved. Transaminases and alk phos are trending down while T. bili went up from 2.7 to 3.2. US does not show any evidence for acute cholecystitis. The radiologist mentions questionable thickening with a GB wall that measures 3mm as they measured. Typically considered mildly thickened at greater than 3mm and then truly thickened at 4mm. There is some uneven distribution of the GB wall thickness from what I can see although not mentioned by the radiologist and no mention of separation of mucosa (and I can not appreciate this) or patchiness of the GB wall. MRCP was performed last night and does not identify any evidence for CBD obstruction. Unfortunately the test of choice would be a HIDA scan which is not currently available and will not be available until Saturday. Acalculous cholecystitis is difficult to diagnose in most cases when the patient fits and this is not a classic patient scenario to see this disease in. It is also unusual that he had acute pain that completely resolved within moments although some other aspects of his presentation appear slightly more suspicious. For example the LFT's in the face of a normal appearing CBD, although not very common to see in acalculous cholecystitis but can be seen in a small number of cases. Again, these are usually very sick patients. I would like to be more sure prior to opting for surgery to remove the gallbladder. I have been able to discuss this case with the medical physician who made me aware that GI has also been consulted and is awaiting completion of imaging evaluation with the HIDA as well. In the meantime, this patient is asymptomatic, afebrile and very stable at this time and was hungry this am. We can let him have full liquids (low fat) and f/u am labs. Will also follow up blood cultures that were obtained yesterday. I will follow up in the am. History of Present Illness Reason for Consultation: R/o acalculous cholecystitis Attending Physician: Nnamdi Dasilva MD History of Present Illness Mr. Deleon is a 72 y/o male who presented to the ED after having an episode of epigastric abdominal pain that resolved once he arrived. He says he felt severe epigastric pain and nausea after having a muffin and cranberry juice yesterday am. He initially went to an urgent care center where he was immediately referred to the ED. In the ED, his pain was resolved but he was found to have elevated LFTs including Tbili. He admits to having some shaking chills as well. Mr. Deleon says he has never experienced pain like this in the past. He does admit to having a h/o GERD which was controlled with Nexium but then began to worsen again in the beginning of September around the time he started having some heart palpitations. He says that as this was managed, his heart burn seemed improved and he was started on Famotidine as well. Today Mr. Deleon says he has not had any heart burn since, in these weeks leading up to this episode of abdominal pain and nausea that occurred out of no where yesterday. Mr. Deleon says he has never experienced anything like this in the past. At the time of my interview, he says he has no symptoms of nausea, abdominal pain, fevers/chills and thought he was well enough to eat and go home. Allergies Allergy/AdvReac Type Severity Reaction Status Date / Time No Known Allergies Allergy Verified 10/19/22 18:44 Home Medications Medication Instructions Recorded Confirmed Type alpha lipoic acid 600 mg capsule 600 mg PO QAM 03/01/22 10/19/22 History ascorbic acid (vitamin C) 1,000 mg 1 g PO QAM 03/01/22 10/19/22 History capsule aspirin 81 mg tablet,delayed 81 mg PO QAM 03/01/22 10/19/22 History release (Adult Low Dose Aspirin) cetirizine 10 mg capsule (Zyrtec) 10 mg PO DAILY PRN Allergy Symptoms 03/01/22 10/19/22 History cholecalciferol (vitamin D3) 125 125 mcg PO QAM 03/01/22 10/19/22 History mcg (5,000 unit) capsule coenzyme Q10 200 mg capsule 200 mg PO QAM 03/01/22 10/19/22 History fluticasone propionate 50 2 spray intranasal QPM 03/01/22 10/19/22 History mcg/actuation nasal spray,suspension (Flonase Allergy Relief) krill 350 mg-omega-3 90 mg-dha 24 1 cap PO QAM 03/01/22 10/19/22 History mg-epa 50 my-voifbyx-mheay capsule (MegaRed [place]-3 Krill Oil) mecobalamin (vitamin B12) 1,000 1,000 mcg PO QAM 03/01/22 10/19/22 History mcg chewable tablet zluknowt-em-naqoz 300 mcg-K 60 1 tab PO QAM 03/01/22 10/19/22 History mcg-lycop 600 mcg-lutein 300 mcg tablet (Centrum Silver Men) red yeast rice 600 mg capsule 1,200 mg PO QAM 03/01/22 10/19/22 History atorvastatin 80 mg tablet 80 mg PO QAM 06/11/22 10/19/22 History esomeprazole magnesium 20 mg 20 mg PO QAM 06/11/22 10/19/22 History capsule,delayed release (Nexium) hydrochlorothiazide 25 mg tablet 25 mg PO QAM 06/11/22 10/19/22 History metoprolol succinate 50 mg capsule 50 mg PO QAM 06/11/22 10/19/22 History sprinkle, ext. release 24 hr olmesartan 40 mg tablet 40 mg PO QAM 06/11/22 10/19/22 History nitroglycerin 0.4 mg sublingual 0.4 mg sublingual Q5M PRN chest 08/14/22 10/19/22 Rx tablet pain #12 tabs potassium gluconate 600 mg (99 mg) 600 mg PO DAILY 09/05/22 10/19/22 History tablet vitamins A,C,T-lwbx-jjrwyq 2,148 1 tab PO BID 09/05/22 10/19/22 History mcg-113 mg-45 mg-17.4 mg tablet (PreserVision AREDS) diltiazem HCl 240 mg 240 mg PO DAILY #90 caps 09/24/22 10/19/22 Rx capsule,extended release 24 hr famotidine 20 mg tablet 20 mg PO DAILY #90 tabs 10/04/22 10/19/22 Rx cranberry extract 500 mg tablet 1,000 mg PO DAILY 10/19/22 10/19/22 History herbal drugs 2 cap PO DAILY 10/19/22 10/19/22 History Patient History Medical History GERD (gastroesophageal reflux disease) History of nephrolithiasis HLD (hyperlipidemia) HTN (hypertension) Osteoarthritis Surgical History History of bilateral hip replacements History of cardiac catheterization History of cataract surgery History of colonoscopy History of eye surgery History of lithotripsy History of prostate surgery History of tonsillectomy Family History Mother Myocardial infarction Father Stroke Other No family history of adverse response to anesthesia Denies family history of Ovarian cancer Prostate cancer Diabetes Breast cancer Lung cancer Colorectal cancer Social History Smoking Status: Never smoker Second Hand Exposure: No; Do You Dip or Chew Tobacco: No; Hx Alcohol Use: No Hx Substance Use: No Preferred Language: Croatian Communication Ability: Effective Visual Impairment: Limited Hearing Ability: Normal Crystal Attacher Required: No Beliefs That Will Affect Care: None marital status: Current Living Situation: Significant Other current occupational status: retired How many Children do You have: 0 Other Information That Helps Us Care for You: No Feels Safe at Home: Yes Safety Concerns: Feels Safe At This Time Childhood Exposure to Second-Hand Smoke: No caffeine: No Dental Care, Regularly: Yes Physical Activity Frequency: Does not Exercise Seatbelt Use: always Sunscreen Use: Yes Assistive Devices: Glasses Review of Systems Review of Systems: As mentioned above Physical Exam Constitutional: healthy appearing and comfortable; no acute distress, not ill appearing and no altered mental status Respiratory: normal respiratory effort; no respiratory distress, no labored breathing and does not use accessory muscles Gastrointestinal (Abdomen): Abdomen is obese, soft. No tympany, no TTP. Deeply palpated at the RUQ without tenderness. No rigidity. Neurologic: moves all extremities and awake; no focal motor deficits and not confused Results & Data Vital Signs (Past 12 Hours) Vital Signs Temp Pulse Pulse Resp BP Pulse Ox O2 Del Method 10/20/22 08:30 36.9 C 74 18 130/73 96 Room Air 10/20/22 07:00 72 10/20/22 03:30 36.9 C 78 17 103/64 95 Room Air PG Care Time/CCT Total # of Minutes Spent Total Time Spent with Patient: Total time spent is greater than 50% in coordination of care (as documented) at patient's floor/unit and/or counseling patient: Coding Level of Care Code 11346 INT INP/OBS CARE 2/55MIN Diagnoses Elevated LFTs R79.89 Abdominal pain, acute, epigastric R10.13
[2022-10-20] MEDS: ACETAMINOPHEN 325 MG TAB PO PRN ×2 (13:10→22:23)
--- NOTE | 2022-10-20 13:59 | Gastrointestinal Consultation ---
Date of Consultation October 20, 2022 Assessment & Plan (1) Abdominal pain, acute, epigastric: (2) Elevated LFTs: Plan abnormal lfts with epigastric pain and nausea, leukocytosis and possible cholecystitis, concern is for acalculous cholecystitis at this point recs: --obtain HIDA scan when able --continue IV abx --trend lfts daily, supportive care appreciate surgical consultation Thank you for allowing me to participate in the care of this patient. History of Present Illness Attending Physician: Nnamdi Dasilva MD History of Present Illness 72-year-old male with hx NSVT, PAT, HTN, BPH with LUTS, CAD here with epigastric pain, nausea. never had this pain before, no hx gallstones nor family hx gallbladder cancer. has gerd for which he takes nexium for years. bilirubin noted to be 2.7 with elevated AST/ALT/ALP, US without gallstones but distended and thickwalled gallbladder noted, findings equivocal for cholecystitis. MRCP without CBD obstruction. today bilirubin is 3.2 but other lfts are trending down. labs reviewed. Allergies Allergy/AdvReac Type Severity Reaction Status Date / Time No Known Allergies Allergy Verified 10/19/22 18:44 Home Medications Medication Instructions Recorded Confirmed Type alpha lipoic acid 600 mg capsule 600 mg PO QAM 03/01/22 10/19/22 History ascorbic acid (vitamin C) 1,000 mg 1 g PO QAM 03/01/22 10/19/22 History capsule aspirin 81 mg tablet,delayed 81 mg PO QAM 03/01/22 10/19/22 History release (Adult Low Dose Aspirin) cetirizine 10 mg capsule (Zyrtec) 10 mg PO DAILY PRN Allergy Symptoms 03/01/22 10/19/22 History cholecalciferol (vitamin D3) 125 125 mcg PO QAM 03/01/22 10/19/22 History mcg (5,000 unit) capsule coenzyme Q10 200 mg capsule 200 mg PO QAM 03/01/22 10/19/22 History fluticasone propionate 50 2 spray intranasal QPM 03/01/22 10/19/22 History mcg/actuation nasal spray,suspension (Flonase Allergy Relief) krill 350 mg-omega-3 90 mg-dha 24 1 cap PO QAM 03/01/22 10/19/22 History mg-epa 50 ga-adjewhw-jmezf capsule (MegaRed [place]-3 Krill Oil) mecobalamin (vitamin B12) 1,000 1,000 mcg PO QAM 03/01/22 10/19/22 History mcg chewable tablet tbskptnn-wt-bzwwq 300 mcg-K 60 1 tab PO QAM 03/01/22 10/19/22 History mcg-lycop 600 mcg-lutein 300 mcg tablet (Centrum Silver Men) red yeast rice 600 mg capsule 1,200 mg PO QAM 03/01/22 10/19/22 History atorvastatin 80 mg tablet 80 mg PO QAM 06/11/22 10/19/22 History esomeprazole magnesium 20 mg 20 mg PO QAM 06/11/22 10/19/22 History capsule,delayed release (Nexium) hydrochlorothiazide 25 mg tablet 25 mg PO QAM 06/11/22 10/19/22 History metoprolol succinate 50 mg capsule 50 mg PO QAM 06/11/22 10/19/22 History sprinkle, ext. release 24 hr olmesartan 40 mg tablet 40 mg PO QAM 06/11/22 10/19/22 History nitroglycerin 0.4 mg sublingual 0.4 mg sublingual Q5M PRN chest 08/14/22 10/19/22 Rx tablet pain #12 tabs potassium gluconate 600 mg (99 mg) 600 mg PO DAILY 09/05/22 10/19/22 History tablet vitamins A,C,I-vvoq-jzxpbz 2,148 1 tab PO BID 09/05/22 10/19/22 History mcg-113 mg-45 mg-17.4 mg tablet (PreserVision AREDS) diltiazem HCl 240 mg 240 mg PO DAILY #90 caps 09/24/22 10/19/22 Rx capsule,extended release 24 hr famotidine 20 mg tablet 20 mg PO DAILY #90 tabs 10/04/22 10/19/22 Rx cranberry extract 500 mg tablet 1,000 mg PO DAILY 10/19/22 10/19/22 History herbal drugs 2 cap PO DAILY 10/19/22 10/19/22 History Patient History Medical History GERD (gastroesophageal reflux disease) History of nephrolithiasis HLD (hyperlipidemia) HTN (hypertension) Osteoarthritis Surgical History History of bilateral hip replacements History of cardiac catheterization 1990s - no stents History of cataract surgery right cataract extraction History of colonoscopy History of eye surgery right History of lithotripsy History of prostate surgery "cage placed around prostate" History of tonsillectomy Family History Mother Myocardial infarction Father Stroke Other No family history of adverse response to anesthesia Denies family history of Ovarian cancer Prostate cancer Diabetes Breast cancer Lung cancer Colorectal cancer Social History Smoking Status: Never smoker Second Hand Exposure: No; Do You Dip or Chew Tobacco: No; Hx Alcohol Use: No Hx Substance Use: No Preferred Language: Citizen Of [place] Communication Ability: Effective Visual Impairment: Limited Hearing Ability: Normal Blood Tester Fowl Required: No Beliefs That Will Affect Care: None marital status: Current Living Situation: Significant Other current occupational status: retired How many Children do You have: 0 Other Information That Helps Us Care for You: No Feels Safe at Home: Yes Safety Concerns: Feels Safe At This Time Childhood Exposure to Second-Hand Smoke: No caffeine: No Dental Care, Regularly: Yes Physical Activity Frequency: Does not Exercise Seatbelt Use: always Sunscreen Use: Yes Assistive Devices: Glasses Review of Systems Constitutional: no fever, no chills and no weight loss Eyes: as per Subjective / HPI Ear, Nose, Mouth, Throat: as per Subjective / HPI Respiratory: no dyspnea and no dyspnea on exertion Cardiovascular: no chest pain and no palpitations Gastrointestinal: as per Subjective / HPI Musculoskeletal: no joint pain and no swelling Integumentary: no rash and no lesions Neurologic: no numbness and no paresthesia Psychiatric: no depression and no anxiety Endocrine: no fatigue Hematologic / Lymphatic: no easy bleeding and no easy bruising Physical Exam Constitutional: WD/WN, vitals as above Eyes: EOM intact bilaterally Neck: normal visual inspection Respiratory: normal respiratory effort, lungs clear to auscultation Cardiovascular: RRR, no murmur, no edema Gastrointestinal (Abdomen): Inspection/Auscultation: abdomen normal to inspection; abdomen not distended Percussion/Palpation: abdomen soft; abdomen nontender and no hepatosplenomegaly Musculoskeletal: Head/Neck/Chest: normocephalic and head atraumatic Extremities: no cyanosis Skin: no rashes, warm and dry Neurologic: moves all extremities Psychiatric: Orientation: alert and cooperative Affect: euthymic affect Results & Data Vital Signs (Past 12 Hours) Vital Signs Temp Pulse Pulse Resp BP Pulse Ox O2 Del Method 10/20/22 11:08 36.9 C 74 16 126/77 96 Room Air 10/20/22 08:30 36.9 C 74 18 130/73 96 Room Air 10/20/22 07:00 72 10/20/22 03:30 36.9 C 78 17 103/64 95 Room Air PG Care Time/CCT Total # of Minutes Spent Total Time Spent with Patient: Total time spent is greater than 50% in coordination of care (as documented) at patient's floor/unit and/or counseling patient: Coding Level of Care Code 06831 INT INP/OBS CARE MIN Diagnoses Abdominal pain, acute, epigastric R10.13 Elevated LFTs R79.89
[2022-10-21] MEDS: ACETAMINOPHEN 325 MG TAB PO PRN (03:32)
--- NOTE | 2022-10-21 06:00 | Surgery Progress Note ---
Date of Service October 21, 2022 Assessment & Plan (1) Abnormal gallbladder ultrasound: Plan: Patient has been admitted on the hospitalist service. We recommend continue care as follows: Gallbladder ultrasound on 10/19/2022 showed a distended gallbladder with pote ntially thick walled appearance. No gallstones were noted. These findings were only equivocal for cholecystitis. An MRCP was performed on 10/19/2022 that showed a distended gallbladder with no gallstones and no clear thickening of the gallbladder wall. There is no pericholecystic fluid. Check a.m. labs when available Admission and Anticipated Discharge Date Admission Date: October 19, 2022 Supervising Physician Co-Signing Physician Notes I have seen and examined this patient this am. He remains afebrile, leukocytosis is resolving and he tolerates his liquids. His LFTs are also resolving. T bili today is 2.1 from 3.2 yesterday. He can be advanced to low fat diet today. F/U am labs If his WBC and T bili happen to be normal in the am, he may be discharged for outpatient work up/follow up. He should complete a course of oral antibiotics at home and continue a low fat diet. He can follow up with me in the office. Subjective Patient is resting comfortably in bed. He denies any abdominal pain at this time. He denies any nausea or vomiting with consumption of clear liquids. Physical Exam Gastrointestinal (Abdomen): Abdomen is soft and nonrigid. It is nondistended. There is no rebound tenderness or guarding and there is no pain with palpation. Results & Data Vital Signs (Past 12 Hours) Vital Signs Temp Pulse Pulse Resp BP Pulse Ox O2 Del Method 10/21/22 02:59 37.0 C 76 18 143/82 H 94 Room Air 10/21/22 00:08 Room Air 10/20/22 22:38 76 10/20/22 23:28 37.5 C 79 18 153/90 H 95 Room Air 10/20/22 20:08 37 C 78 16 150/80 H 96 Room Air PG Care Time/CCT Total # of Minutes Spent Total Time Spent with Patient: Total time spent is greater than 50% in coordination of care (as documented) at patient's floor/unit and/or counseling patient: Coding Level of Care Code 50611 SUB INP/OBS CARE 03/14MIN Diagnoses Abnormal gallbladder ultrasound R93.2
[2022-10-21 06:58] LABS: Basophils # (auto) 0.04 K/uL (0.00-0.20); Basophils % (auto) 0.4 %; Eosinophils # (auto) 0.11 K/uL (0.00-0.50); Hematocrit (blood only) 39.5 % (42.0-52.0); Hemoglobin 13.2 g/dl (14.0-18.0); Immature Granulocytes # (auto) 0.06 K/uL (0.01-0.20); Immature Granulocytes % (auto) 0.5 %; Lymphocytes # (auto) 0.64 K/uL (1.20-3.40); Lymphocytes % (auto) 5.6 %; Mean Corpuscular Hemoglobin 30.3 pg (25.0-34.0); Mean Corpuscular Hgb Conc 33.4 g/dL (32.0-36.0); Mean Corpuscular Volume 90.6 fL (80.0-100.0); Mean Platelet Volume 11.6 fL (9.4-12.4); Monocytes # (auto) 0.84 K/uL (0.11-0.59); Monocytes % (auto) 7.4 %; Neutrophils # (auto) 9.68 K/uL (1.40-6.50); Neutrophils % (auto) 85.1 %; Platelet Count 123 K/uL (130-400); RDW Coefficient of Variation 14.4 % (11.5-14.5); RDW Standard Deviation 48.5 fL (36.4-46.3); Red Blood Count 4.36 M/uL (4.70-6.10); White Blood Count 11.37 K/ul (4.8-10.8)
--- NOTE | 2022-10-21 07:06 | Hospitalist Progress Note ---
Date of Service October 21, 2022 Assessment & Plan (1) Abdominal pain, acute, epigastric: Plan: Abnormal gallbladder ultrasound/epigastric pain/abnormal LFTs-concern for acalculaous cholecystitis not a clear-cut case of a calculus cholecystitis. Patient's LFTs are improving without intervention likely raising the concern whether LFT abnormalities could be in the face of gram-negative bacteremia at this time continue to watchful waiting without surgical intervention considering outpatient HIDA scan but treating the Enterobacter UTI MRCP equivocal consideration for possible HIDA scan but will not be able to procure that until October 23 Given ceftriaxone and Flagyl IV in ED in patient on Zosyn 4.5 g IV hours Consult gastroenterology, general surgery both are watchful waiting hoping that medical management will stabilize any infectious issue until HIDA scan can be obtained Pt had low blood pressure in er, leukocytosis and elevated lactic acid, concern for sepsis on presentation vital signs and a stable restarting antihypertensive medications on 10/21 (2) Acute UTI (urinary tract infection): Plan: Pt has abnormal ua on presentation culture gram-negative Enterobacter with sensitivities showing pansensitive, but intermediate sensitivity to ceftriaxone and nitrofurantoin on Zosyn (3) Nonsustained paroxysmal supraventricular tachycardia: Plan: typically on diltiazem/metoprolol which were held due to low blood pressure will restart metoprolol and [id number] with hypotension also holding olmesartan and hydrochlorothiazide (4) BPH loc w urin obs/LUTS: (5) CAD (coronary artery disease): (6) GERD (gastroesophageal reflux disease): Admission and Anticipated Discharge Date Admission Date: October 19, 2022 Subjective Patient feels better tolerating diet did have 1 episode of abdominal pain overnight this resolved LFTs are improving urine confirms Enterobacter UTI greater than 100,000 this is pansensitive blood cultures were negative x2 at this time Physical Exam Physical Exam: Physical exam he is anicteric no right upper quadrant pain Her exam is regular lungs are clear Abdomen is with NABS does not have any right upper quadrant tenderness guarding or other areas of tenderness at this point time Results & Data Results & Data Vital Signs (Past 12 Hours) Vital Signs Temp Pulse Pulse Resp BP Pulse Ox O2 Del Method 10/21/22 02:59 98.6 F 76 18 143/82 H 94 Room Air 10/21/22 00:08 Room Air 10/20/22 22:38 76 10/20/22 23:28 99.5 F 79 18 153/90 H 95 Room Air 10/20/22 20:08 98.6 F 78 16 150/80 H 96 Room Air Laboratory Results reviewed CBC reviewed chemistry personally discussed case [id number] with Dr. Mason PG Care Time/CCT Total # of Minutes Spent Total Time Spent with Patient: Total time spent is greater than 50% in coordination of care (as documented) at patient's floor/unit and/or counseling patient: Coding Level of Care Code 14248 SUB INP/OBS CARE 2/35MIN Diagnoses Abdominal pain, acute, epigastric R10.13 Acute UTI (urinary tract infection) N39.0 Nonsustained paroxysmal supraventricular tachycardia I47.1 BPH loc w urin obs/LUTS N40.1 CAD (coronary artery disease) I25.10 GERD (gastroesophageal reflux disease) K21.9
[2022-10-21] MEDS: NSS + 20MEQ KCL 20 MEQ/1,000 ML BAG IV SCH (07:52)
[2022-10-21] MEDS: PIPERACILLIN/TAZOBACTAM 4.5 GM in DEXTROSE 5% 100 ML IV SCH ×3 (07:59→23:38)
[2022-10-21 08:09] LABS: Albumin Globulin Ratio 1.6 (0.9-2); Albumin Level 3.3 gm/dl (3.4-5.0); Bilirubin,Total 2.1 mg/dl (0.2-1.0); Calcium 8.1 mg/dl (8.6-10.3); Creatinine Clr Calc Pharmacy 71.1 ml/min; Est GFR (African American) 85.6 ml/min; Est GFR (Non-African American) 73.8 ml/min; Globulin 2.1 gm/dl (2.5-4.0); Magnesium 1.8 mg/dl (1.7-2.4); Potassium 3.4 mmol/L (3.5-5.1); Total Protein 5.4 gm/dl (6.0-8.3)
[2022-10-21] MEDS ORDERED: POTASSIUM CHLORIDE CRTAB 20 MEQ TABCR PO STA (08:56)
[2022-10-21] MEDS: METOPROLOL TARTRATE 25 MG TAB PO SCH ×2 (09:52→21:58)
[2022-10-21] MEDS ORDERED: dilTIAZem HCL 120 MG CAPCR PO ONE (12:00)
[2022-10-21] MEDS: PANTOprazole 40 MG in SYRINGE 0 ML IV SCH (13:27)
[2022-10-22] MEDS: ACETAMINOPHEN 325 MG TAB PO PRN (03:43)
[2022-10-22 06:54] LABS: Basophils # (auto) 0.05 K/uL (0.00-0.20); Basophils % (auto) 0.6 %; Eosinophils # (auto) 0.11 K/uL (0.00-0.50); Eosinophils % (auto) 1.3 %; Hematocrit (blood only) 37.4 % (42.0-52.0); Hemoglobin 12.8 g/dl (14.0-18.0); Immature Granulocytes # (auto) 0.12 K/uL (0.01-0.20); Immature Granulocytes % (auto) 1.4 %; Lymphocytes # (auto) 0.81 K/uL (1.20-3.40); Lymphocytes % (auto) 9.2 %; Mean Corpuscular Hemoglobin 30.5 pg (25.0-34.0); Mean Corpuscular Hgb Conc 34.2 g/dL (32.0-36.0); Mean Corpuscular Volume 89.3 fL (80.0-100.0); Mean Platelet Volume 11.9 fL (9.4-12.4); Monocytes # (auto) 0.81 K/uL (0.11-0.59); Monocytes % (auto) 9.2 %; Neutrophils % (auto) 78.3 %; Platelet Count 127 K/uL (130-400); RDW Coefficient of Variation 14.6 % (11.5-14.5); RDW Standard Deviation 47.3 fL (36.4-46.3); Red Blood Count 4.19 M/uL (4.70-6.10)
[2022-10-22 07:09] LABS: Albumin Globulin Ratio 1.5 (0.9-2); Albumin Level 3.4 gm/dl (3.4-5.0); BUN Creatinine Ratio 11.2 (10-20); Bilirubin,Total 1.2 mg/dl (0.2-1.0); Calcium 8.6 mg/dl (8.6-10.3); Creatinine Clr Calc Pharmacy 67.1 ml/min; Est GFR (African American) 78.8 ml/min; Globulin 2.2 gm/dl (2.5-4.0); Magnesium 1.9 mg/dl (1.7-2.4); Potassium 4.3 mmol/L (3.5-5.1); Total Protein 5.6 gm/dl (6.0-8.3)
[2022-10-22] MEDS: PIPERACILLIN/TAZOBACTAM 4.5 GM in DEXTROSE 5% 100 ML IV SCH (08:22)
[2022-10-22] MEDS ORDERED: dilTIAZem HCL 240 MG CAPCR PO SCH (09:00)
[2022-10-22] MEDS ORDERED: METOPROLOL SUCC 50MG EXT REL TAB PO SCH (09:00)
--- NOTE | 2022-10-22 16:20 | Discharge Summary ---
Date of Service October 22, 2022 Admission HPI Per Admitting Provider The patient is a 72-year-old male with past medical history including nonsustained V. tach, paroxysmal atrial tachycardia, hypertension, BPH with LUTS, CAD, hyperlipidemia, GERD, prediabetes and urolithiasis. He presents the ED with a cute onset of epigastric pain which progressed to nausea and worsening pain up until 230 this afternoon, when he presents to the ED for assessment. He has not had any different food intake than usual, and no symptoms prior to today. He denies any recent travels or sick exposures. Significant laboratory abnormalities: Hemoglobin 16.7, hematocrit 47.1, potassium 3.2, glucose 108, total bilirubin 2.7, AST 271, ALT 204, ALP 213. Urinalysis is abnormal suggesting infection Ultrasound gallbladder: Gallbladder is distended and appears thick-walled. No shadowing gallstones identified and a sonographic Verduzco sign is reportedly absent. Findings are equivocal for acute cholecystitis, which is not entirely excluded. Clinical and laboratory correlation will be required. If there is a strong clinical discern for acute/a calculus cholecystitis a nuclear hepatobiliary scan should be considered GI consult by ED, asked that MRCP be performed. Principal Diagnosis Enterobacter urinary tract infection Transient hepatic irritation resolvinglikely will benefit from outpatient HIDA scan Discharge Exam Awake alert appropriate no nausea no abdominal pain Discharge Data Allergies Allergy/AdvReac Type Severity Reaction Status Date / Time No Known Allergies Allergy Verified 10/19/22 18:44 Consultations 10/19/22 20:36 ED Decision to Admit Stat 10/19/22 22:51 Consult Gastroenterology Routine 10/20/22 08:34 Consult General Surgery Routine Ordered Studies Gallbladder Ultrasound 10/19/22 17:54 ULTRASOUND RIGHT UPPER QUADRANT ABDOMEN CLINICAL HISTORY: Epigastric abdominal pain. Chills. Anorexia. COMPARISON STUDY: No priors. TECHNIQUE: Real-time, grayscale, and color flow sonography of the right upper quadrant of the abdomen was performed. Images are reviewed in the transverse and longitudinal planes. FINDINGS: Liver: The liver is normal in size and echotexture. There is no intrahepatic biliary ductal dilatation. The main portal vein is patent. Gallbladder: The gallbladder is distended and the wall is thickened, measuring up to 3 mm in diameter. No shadowing gallstones are identified. No pericholecystic fluid is seen and a sonographic Verduzco's sign is reportedly absent. The common bile duct measures up to 0.6 cm in diameter. Pancreas: Visualized portions of the pancreatic head and body are normal in appearance. Right kidney: Survey images of the right kidney demonstrate normal size and echotexture. There is no hydronephrosis. Ascites: None. IMPRESSION: 1. The gallbladder is distended and appears thick-walled. No shadowing gallstones are identified and a sonographic Verduzco's sign is reportedly absent. Findings are equivocal for acute cholecystitis, which is not entirely excluded. Clinical and laboratory correlation will be required. If there is strong clinical concern for acute/acalculus cholecystitis a nuclear hepatobiliary scan should be considered. 2. There is no significant intra or extrahepatic biliary ductal dilatation. ACT 112: Negative or not required by law. Electronically signed by: Shravan Brown M.D. 10/19/2022 7:39 PM Cholangiopancreatography MRI 10/19/22 20:52 Exam(s): MRI MRCP EXAM: MR Abdomen Without Intravenous Contrast, MRCP Protocol CLINICAL HISTORY: abnormal LFT's. TECHNIQUE: Multiplanar magnetic resonance images of the abdomen without intravenous contrast using MRCP protocol. COMPARISON: Right upper quadrant ultrasound performed at 1856 hrs. FINDINGS: Bile ducts: Unremarkable. No stones. No ductal dilation. Gallbladder: The gallbladder is distended. No cholelithiasis. The gallbladder wall thickening noted sonographically is not clearly delineated, although evaluation is slightly limited by mild respiratory artifact. No obvious pericholecystic fluid. Liver: Low attenuation foci in the liver which may be due to cysts but are too small to characterize. Pancreas: Unremarkable. No ductal dilation. Spleen: Unremarkable. No splenomegaly. Adrenals: Unremarkable. No mass. Kidneys and ureters: Unremarkable. No hydronephrosis. Stomach and bowel: Limited. No obstruction. Other findings: Asymmetric elevation of the right hemidiaphragm. IMPRESSION: 1. The gallbladder is distended. No cholelithiasis. The gallbladder wall thickening noted sonographically is not clearly delineated, although evaluation is slightly limited by mild respiratory artifact. No obvious pericholecystic fluid. 2. No biliary dilatation. No choledocholithiasis. Electronically signed by: Ravi Enamorado MD 10/19/22 23:30 PM Hospital Course (1) Abdominal pain, acute, epigastric: Abnormal gallbladder ultrasound/epigastric pain/abnormal LFTs-concern for acalculaous cholecystitis not a clear-cut case of acalculus cholecystitis. Patient's LFTs are improving without intervention likely raising the concern whether LFT abnormalities could be in the face of gram-negative bacteremia at this time continue to watchful waiting without surgical intervention considering outpatient HIDA scan but treating the Enterobacter UTI MRCP equivocal consideration for possible HIDA scan but will not be able to pro cure that until October 23 Will discharge on ciprofloxacin, close follow-up with outpatient provider Consult gastroenterology, general surgery both are watchful waiting, consider HIDA scan as an outpatient for completeness Pt had low blood pressure in er, leukocytosis and elevated lactic acid, concern for sepsis on presentation now resolved vital signs and a stable restarting antihypertensive medications on 10/21 (2) Acute UTI (urinary tract infection): Pt has abnormal ua on presentation culture gram-negative Enterobacter with sensitivities showing pansensitive, but intermediate sensitivity to ceftriaxone and nitrofurantoin Sensitive to ciprofloxacin will be discharged on ciprofloxacin (3) Nonsustained paroxysmal supraventricular tachycardia: typically on diltiazem/metoprolol restarted and tolerated well before discharge Resume olmesartan and hydrochlorothiazide (4) BPH loc w urin obs/LUTS: (5) CAD (coronary artery disease): (6) GERD (gastroesophageal reflux disease): Total Time Total Time Spent Total Time Spent (In Minutes): It required greater than 30 minutes to prepare this patient for discharge Discharge Plan Discharge Items Patient Disposition: Home - Self-Care Reason For Visit: ABNORMAL LFT'S, HYPOTENSION Discharge Diagnosis: urinary tract infection present on admission abnormal liver function testing Activity: Resume your previous activity Non-emergency contact: Primary Care Provider Call non-emergency contact if: your symptoms worsen Follow-up/Referrals: Taz Elizondo CRNP [Primary Care Provider] - Diet: Low Fat Addtl Attending Provider Instructions: please complete antibiotics and follow up with your primary care office as soon as able Pending Studies at Discharge: No Stand-Alone Forms: [facility], Smoking Cessation Medications and DC Order Prescriptions: New ciprofloxacin HCl [Cipro] 500 mg tablet 500 mg PO BID Qty: 14 0RF Continued famotidine 20 mg tablet 20 mg PO DAILY Qty: 90 3RF aspirin [Adult Low Dose Aspirin] 81 mg tablet,delayed release (DR/EC) 81 mg PO QAM Zyrtec 10 mg capsule 10 mg PO DAILY PRN (Reason: Allergy Symptoms) Centrum Silver Men 300-600-300 mcg tablet 1 tab PO QAM ascorbic acid (vitamin C) 1,000 mg capsule 1 g PO QAM alpha lipoic acid 600 mg capsule 600 mg PO QAM mecobalamin (vitamin B12) 1,000 mcg tablet,chewable 1,000 mcg PO QAM cholecalciferol (vitamin D3) 125 mcg (5,000 unit) capsule 125 mcg PO QAM red yeast rice 600 mg capsule 1,200 mg PO QAM Hold Instructions: per hopitalist Rx Instructions: give with meal/snack coenzyme Q10 200 mg capsule 200 mg PO QAM MegaRed Hurst-3 Krill Oil 232-86-05-50 mg capsule 1 cap PO QAM fluticasone propionate [Flonase Allergy Relief] 50 mcg/actuation spray,suspension 2 spray intranasal QPM Rx Instructions: administer into each nostril nitroglycerin 0.4 mg tablet, sublingual 0.4 mg sublingual Q5M PRN (Reason: chest pain) Qty: 12 0RF Rx Instructions: do not exceed 3 doses per episode diltiazem HCl 240 mg capsule,extended release 24hr 240 mg PO DAILY Qty: 90 3RF atorvastatin 80 mg tablet 80 mg PO QAM hydrochlorothiazide 25 mg tablet 25 mg PO QAM esomeprazole magnesium [Nexium] 20 mg capsule,delayed release(DR/EC) 20 mg PO QAM olmesartan 40 mg tablet 40 mg PO QAM metoprolol succinate 50 mg capsule,sprinkle,ER 24hr 50 mg PO QAM herbal drugs Capsule 2 cap PO DAILY Rx Instructions: BEE POLLEN--1,000 MG PER CAPSULE cranberry extract 500 mg Tablet 1,000 mg PO DAILY Rx Instructions: administer with meals PreserVision AREDS 2,148 mcg-113 mg-45 mg-17.4mg Tablet 1 tab PO BID Rx Instructions: administer with AM and PM meals potassium gluconate 600 mg (99 mg) Tablet 600 mg PO DAILY Discharge Orders: Discharge Order (Routine); Ordered 10/22/22 Ordered By: Nnamdi Dasilva Admission Data Admit Date/Time: 10/19/22 21:00 Attending Provider: Nnamdi Dasilva Admit Provider: Daniel Robledo Primary Care Provider: aTz Elizondo Other Providers: Daniel Robledo ; Hoang Mir ; Jessa Avila Other Interventions: Discharge Summary Assessment (RN) Last Done: 10/22/22 12:08 Coding Level of Care Code 07228 INP/OBS DISCH >30 MIN Diagnoses Abdominal pain, acute, epigastric R10.13 Acute UTI (urinary tract infection) N39.0 Nonsustained paroxysmal supraventricular tachycardia I47.1 BPH loc w urin obs/LUTS N40.1 CAD (coronary artery disease) I25.10 GERD (gastroesophageal reflux disease) K21.9
--- NOTE | 2022-10-22 19:47 | Electrocardiogram Report ---
Test Reason : Blood Pressure : / mmHG Vent. Rate : 111 BPM Atrial Rate : 111 BPM P-R Int : 156 ms QRS Dur : 070 ms QT Int : 376 ms P-R-T Axes : 026 014 023 degrees QTc Int : 511 ms Sinus tachycardia Nonspecific ST abnormality Prolonged QT Abnormal ECG When compared with ECG of 04-SEP-2022 23:33, Vent. rate has increased BY [address] now depressed in Anterolateral leads Nonspecific T wave abnormality has replaced inverted T waves in Inferior leads QT has lengthened Confirmed by Nickolas Hernandez ([id number]) on 10/22/2022 7:47:22 PM Referred By: REFERRED SELF Confirmed By:Nickolas Hernandez
== END 2022-10-22 12:41 | disposition home or self-care (01) | DRG 872 ==
LOC: ED 16:59 → 4W 21:00 → SUATTDRO 21:00 → 4W 22:24 → 2N 10-20 14:11